=== PATIENT | male | born 1995 | race Two or more races ===

== ENCOUNTER 2020-06-22 16:37 | Emergency (ER) | payer OTHER ==
[~2020-06-22] VITALS: Ht 157.5 cm; Wt 57.2 kg
[2020-06-22 16:37] VITALS: BP 122/83
[2020-06-22] MEDS ORDERED: ACETAMINOPHEN 650 mg PER 20 mL UD PO ONE (17:00)
[2020-06-22] MEDS ORDERED: IBUPROFEN 100MG/5ML ORAL SUSP 100 MG/5 ML UD PO ONE (17:00)
== END 2020-06-22 19:43 | disposition left against medical advice (07) ==
LOC: ER 16:37
DX: J02.9 Acute pharyngitis, unspecified (principal); Z53.21 Procedure and treatment not carried out due to patient leaving prior to being seen by health care provider